=== PATIENT | female | born 1975 | race Caucasian/White ===

== ENCOUNTER 2018-03-15 09:36 | Emergency (ER) | payer SELFPAY ==
[~2018-03-15 09:36] MED LIST: ACET-2619
== END 2018-03-15 09:40 | disposition left against medical advice (07) ==
LOC: MED 09:36
DX: R07.9 Chest pain, unspecified (principal); Z79.1 Long term (current) use of non-steroidal anti-inflammatories (NSAID); Z53.21 Procedure and treatment not carried out due to patient leaving prior to being seen by health care provider

== ENCOUNTER 2023-08-02 02:01 | Emergency (ER) | payer OTHER ==
[~2023-08-02] VITALS: Ht 152.4 cm; Wt 68.0 kg
[2023-08-02 02:06] VITALS: O2SAT 99
[2023-08-02 02:14] VITALS: PULSE 142; RESP 20; O2SAT 100
[2023-08-02] MEDS ORDERED: CIPR5DRO OP (02:31)
[2023-08-02] MEDS ORDERED: CIPR7.5D2 OT (02:31)
[2023-08-02] MEDS ORDERED: MIDAZOLAM 5 MG/5 ML VIAL IM ONE (02:55)
[2023-08-02] MEDS ORDERED: OLANZapine 10 MG VIAL IM ONE ×2 (02:55→03:25)
[2023-08-02 03:03] VITALS: BP 145/86; PULSE 121; RESP 22; TEMP 98.2; O2SAT 98
[2023-08-02] MEDS ORDERED: LORazepam 2 MG/ML VIAL IVP ONE (03:20)
[2023-08-02] MEDS ORDERED: OLANZapine 5 MG ODT SL ONE (03:20)
[2023-08-02] MEDS ORDERED: MIDAZOLAM 2 MG/2 ML VIAL IM ONE (03:25)
[2023-08-02] MEDS: INSULIN REGULAR, HUMAN 100 UNIT/ML VIAL SUBQ ONE (05:15)
== END 2023-08-02 04:58 ==
LOC: MED 02:01
DX: S09.90XA Unspecified injury of head, initial encounter (principal); F10.129 Alcohol abuse with intoxication, unspecified; Y90.9 Presence of alcohol in blood, level not specified; V49.88XA Car occupant (driver) (passenger) injured in other specified transport accidents, initial encounter; Y93.89 Activity, other specified; Y92.89 Other specified places as the place of occurrence of the external cause; Y99.8 Other external cause status
CPT/HCPCS: 70450; 96372; 99285; J1815; J2250